=== PATIENT | female | born 1965 | race Caucasian/White ===

== ENCOUNTER 2020-12-17 15:23 | Emergency (ER) | payer BC ==
[2020-12-17 15:31] VITALS: BP 150/84
[2020-12-17] MEDS ORDERED: metroNIDAZOLE 250 MG TABLET PO STA (15:40)
[2020-12-17] MEDS ORDERED: CIPROFLOXACIN 250 MG TABLET PO STA (15:40)
--- NOTE | 2020-12-17 15:43 | ED Physician Documentation ---
PD HPI ABD PAIN - Stated complaint Stated Complaint: L SIDE PX - Chief complaint Chief Complaint: Abd Pain - History obtained from History obtained from: Patient - Additional information Additional information: 55-year-[place] has a history of recurrent diverticulitis, once with a small abscess that was managed with IV antibiotics. She has had left lower quadrant pain with mild nausea for the last 5 days. No fevers. No changes in bowel movements. Has not made any dietary adjustment yet. Request abx Review of Systems Constitutional: denies: Fever, Chills Cardiac: denies: Chest pain / pressure, Palpitations Respiratory: denies: Dyspnea, Cough GI: reports: Abdominal Pain, Nausea PD PAST MEDICAL HISTORY - Present Medications Home Medications: Ambulatory Orders Medication Instructions Recorded Confirmed Ciprofloxacin HCl [Cipro] 500 mg PO BID #14 tablet 12/17/20 Ondansetron Odt [Zofran] 4 mg TL Q6H PRN #10 tablet 12/17/20 metroNIDAZOLE [Flagyl] 500 mg PO TID #21 tablet 12/17/20 - Allergies Allergies/Adverse Reactions: Allergies Allergy/AdvReac Type Severity Reaction Status Date / Time meperidine [From Demerol] Allergy Emesis Verified 12/17/20 15:28 Latex, Natural Rubber AdvReac Hives Verified 12/17/20 15:28 PD ED PE NORMAL - Vitals Vital signs reviewed: Yes - General General: Alert and oriented X 3, No acute distress - Neck Neck: Supple, no meningeal sign, No bony TTP - Cardiac Cardiac: RRR, No murmur - Respiratory Respiratory: No respiratory distress, Clear bilaterally - Abdomen Abdomen: Normal bowel sounds, Soft, Non tender - Back Back: No CVA TTP, No spinal TTP - Derm Derm: Normal color, Warm and dry - Extremities Extremities: No edema, No calf tenderness / cord - Neuro Neuro: Alert and oriented X 3, Normal speech Results - Vitals Vitals: Vital Signs - 24 hr 12/17/20 15:28 Temperature 36.5 C Heart Rate 114 H Respiratory 16 Rate Blood Pressure 150/84 H O2 Saturation 98 Oxygen O2 Source Room air PD MEDICAL DECISION MAKING - ED course ED course: 55-year-old woman with history of recurrent diverticulitis presents with apparent flare of same, requests prescription for antibiotics. We discussed advanced imaging and options for antibiotics and she opted for Cipro and Flagyl now. Departure - Departure Disposition: 01 Home, Self Care Clinical Impression: Diverticulitis of gastrointestinal tract Condition: Good Record reviewed to determine appropriate education?: Yes Instructions: ED Diverticulitis Prescriptions: Ciprofloxacin HCl [Cipro] 500 mg PO BID #14 tablet metroNIDAZOLE [Flagyl] 500 mg PO TID #21 tablet Ondansetron Odt [Zofran] 4 mg TL Q6H PRN #10 tablet PRN Reason: Nausea / Vomiting Comments: Clear liquid diet for the next 24 hours, then go to a low residue liquid diet for 24 hours and then slowly advance. Return if worsening or if not better for the next few days. Or if you run a fever. Discharge Date/Time: 12/17/20 15:55
== END 2020-12-17 15:55 | disposition home or self-care (01) ==
LOC: ED 15:23
DX: K57.92 Diverticulitis of intestine, part unspecified, without perforation or abscess without bleeding (principal)
CPT/HCPCS: 99283; 99284; A9270

== ENCOUNTER 2020-12-22 19:17 | Emergency (ER) | payer BC ==
[2020-12-22 20:11] LABS: BILIRUBIN,URINE NEGATIVE (NEGATIVE); GLUCOSE, URINE (UA) NEGATIVE (NEGATIVE); KETONES,URINE (UA) NEGATIVE (NEGATIVE); LEUKOCYTE ESTERASE, URINE TRACE (NEGATIVE); NITRITE,URINE NEGATIVE (NEGATIVE); OCCULT BLOOD,URINE TRACE-LYSE (NEGATIVE); PH,URINE 5.5 PH (5.0-7.5); PROTEIN,URINE NEGATIVE (NEGATIVE); UROBILINOGEN,URINE 0.2 (NORMAL) E.U./dL (NORMAL)
[2020-12-22 20:15] LABS: CLARITY,URINE HAZY (CLEAR)
[2020-12-22 20:25] LABS: BASOPHILS # (AUTO) 0.1 10^3/uL (0.0-0.1); EOSINOPHILS # (AUTO) 0.1 10^3/uL (0.0-0.7); EOSINOPHILS % (AUTO) 2.5 %; HCT - HEMATOCRIT 41.9 % (37.0-47.0); HGB - HEMOGLOBIN 14.3 g/dL (12.0-16.0); LYMPHOCYTES # (AUTO) 2.4 10^3/uL (1.5-3.5); LYMPHOCYTES % (AUTO) 44.9 %; MEAN CORPUSCULAR HEMOGLOBIN 31.9 pg (27.0-31.0); MEAN CORPUSCULAR HGB CONC 34.1 g/dL (32.0-36.0); MEAN CORPUSCULAR VOLUME 93.5 fL (81.0-99.0); MEAN PLATELET VOLUME 9.9 fL (7.9-10.8); MONOCYTES # (AUTO) 0.4 10^3/uL (0.0-1.0); MONOCYTES % (AUTO) 7.6 %; NEUTROPHILS # (AUTO) 2.3 10^3/uL (1.5-6.6); NEUTROPHILS % (AUTO) 43.8 %; PLT - PLATELET COUNT 191 10^3/uL (130-450); RED BLOOD COUNT 4.48 10^6/uL (4.20-5.40); RED CELL DISTRIBUTION WIDTH 13.1 % (12.0-15.0); WHITE BLOOD COUNT 5.3 x10^3/uL (4.8-10.8)
[2020-12-22 20:36] LABS: BACTERIA,URINE Rare /HPF (None Seen); RBC,URINE 0-5 /HPF (0-5); SQUAMOUS EPITHELIAL CELL,UR FEW Squamous (<= Few); WBC,URINE 0-3 /HPF (0-5)
[2020-12-22 20:38] LABS: ALBUMIN 4.4 g/dL (3.2-5.5); ALBUMIN/GLOBULIN RATIO 1.8 (1.0-2.2); BILIRUBIN,TOTAL 0.6 mg/dL (0.2-1.0); CREATININE 0.7 mg/dL (0.4-1.0); POTASSIUM 3.6 mmol/L (3.5-5.0); TOTAL PROTEIN 6.9 g/dL (6.7-8.2)
[2020-12-22] MEDS ORDERED: IOPAMIDOL-300 100 ML VIAL ONE (21:01)
--- NOTE | 2020-12-22 21:02 | ED Physician Documentation ---
PD HPI ABD PAIN - Stated complaint Stated Complaint: LT SIDE FLANK PX - Chief complaint Chief Complaint: Abd Pain - History obtained from History obtained from: Patient - Additional information Additional information: 55-year-old woman with a history of diverticulitis, she is visiting here and was seen by me on Thursday, 5 days ago for apparent clinical flare of same and was put on Cipro and Flagyl which she has been taking. She has not really gotten any better. That said she has not gotten worse either. Bowel movements have been scant but she has been eating a light diet. They were little mucousy to. She denies vomiting but she has had nausea but not bad enough to take the Zofran that was prescribed. Review of Systems Ten Systems: 10 systems reviewed and negative Constitutional: denies: Fever, Chills Cardiac: denies: Chest pain / pressure, Palpitations Respiratory: denies: Dyspnea, Cough PD PAST MEDICAL HISTORY - Past Medical History Past Medical History: Yes GI: Diverticulitis - Present Medications Home Medications: Ambulatory Orders Medication Instructions Recorded Confirmed Ciprofloxacin HCl [Cipro] 500 mg PO BID #14 tablet 12/17/20 12/22/20 Ondansetron Odt [Zofran] 4 mg TL Q6H PRN #10 tablet 12/17/20 12/22/20 metroNIDAZOLE [Flagyl] 500 mg PO TID #21 tablet 12/17/20 12/22/20 - Allergies Allergies/Adverse Reactions: Allergies Allergy/AdvReac Type Severity Reaction Status Date / Time meperidine [From Demerol] Allergy Emesis Verified 12/22/20 19:41 Latex, Natural Rubber AdvReac Hives Verified 12/22/20 19:41 - Social History Does the pt smoke?: No Smoking Status: Never smoker Does the pt drink ETOH?: No Does the pt have substance abuse?: No - Immunizations Immunizations are current?: Yes - POLST Patient has POLST: No PD ED PE NORMAL - Vitals Vital signs reviewed: Yes - General General: Alert and oriented X 3, No acute distress - HEENT HEENT: PERRL, EOMI - Neck Neck: Supple, no meningeal sign, No bony TTP - Cardiac Cardiac: RRR, No murmur - Respiratory Respiratory: No respiratory distress, Clear bilaterally - Abdomen Abdomen: Normal bowel sounds, Soft, Other (Mild left lower quadrant tenderness without surgical signs.) - Back Back: No CVA TTP, No spinal TTP - Derm Derm: Normal color, Warm and dry - Extremities Extremities: No edema, No calf tenderness / cord - Neuro Neuro: Alert and oriented X 3, Normal speech Results - Vitals Vitals: Vital Signs - 24 hr 12/22/20 12/22/20 12/22/20 19:37 19:38 22:03 Temperature 37.0 C 37.0 C 37.1 C Heart Rate 87 87 90 Respiratory 16 16 16 Rate Blood Pressure 136/70 H 136/70 H 129/75 O2 Saturation 99 99 100 Oxygen O2 Source Room air - Labs Labs: Laboratory Tests 12/22/20 12/22/20 12/22/20 19:54 20:16 20:16 WBC 5.3 RBC 4.48 Hgb 14.3 Hct 41.9 MCV 93.5 MCH 31.9 H MCHC 34.1 RDW 13.1 Plt Count 191 MPV 9.9 Neut # (Auto) 2.3 Lymph # (Auto) 2.4 [place] # (Auto) 0.4 Eos # (Auto) 0.1 Baso # (Auto) 0.1 Absolute Nucleated RBC 0.00 Nucleated RBC % 0.0 Sodium 140 Potassium 3.6 Chloride 105 Carbon Dioxide 26 Anion Gap 9.0 BUN 12 Creatinine 0.7 Estimated GFR (MDRD) 86 L Glucose 108 H Calcium 9.0 Total Bilirubin 0.6 AST 36 ALT 30 Alkaline Phosphatase 74 Total Protein 6.9 Albumin 4.4 Globulin 2.5 Albumin/Globulin Ratio 1.8 Lipase 32 Urine Color LT. YELLOW Urine Clarity HAZY Urine pH 5.5 Ur Specific Switchback <=1.005 Urine Protein NEGATIVE Urine Glucose (UA) NEGATIVE Urine Ketones NEGATIVE Urine Occult Blood TRACE-LYSE Urine Nitrite NEGATIVE Urine Bilirubin NEGATIVE Urine Urobilinogen 0.2 (NORMAL) Ur Leukocyte Esterase TRACE H Urine RBC 0-5 Urine WBC 0-3 Ur Squamous Epith Cells FEW Squamous Urine Bacteria Rare Ur Microscopic Review INDICATED Urine Culture Comments INDICATED PD MEDICAL DECISION MAKING - ED course ED course: 55-year-old woman with history of Diverticulitis presents after 5 days of antibiotics without improvement. That said her symptoms have changed somewhat. As such CT imaging was obtained and negative for active diverticulitis. I discussed with her I think she could safely stop antibiotics at this juncture and advance her diet. Departure - Departure Disposition: 01 Home, Self Care Clinical Impression: Diverticulitis of gastrointestinal tract Condition: Good Record reviewed to determine appropriate education?: Yes Comments: Given the lack of findings of active diverticulitis, reasonable to stop the antibiotics at this juncture. Go back to a normal diet over the next day or 2. Return if worsening. Discharge Date/Time: 12/22/20 22:05
[2020-12-22] MEDS ORDERED: IOPAMIDOL-300 100 ML VIAL IVP ONE (21:26)
--- NOTE | 2020-12-22 21:40 | CT Report ---
PROCEDURE: Abdomen/Pelvis W INDICATIONS: IV only LLQ pain CONTRAST: IV CONTRAST: Isovue 300 ml: 100 PO CONTRAST: *NO PO CONTRAST TECHNIQUE: After the administration of nonionic IV contrast, 5 mm thick sections acquired from the diaphragms to the symphysis. 5 mm thick coronal and sagittal reformats were acquired. For radiation dose reducti on, the following was used: automated exposure control, adjustment of mA and/or kV according to martha ent size. COMPARISON: None. FINDINGS: Image quality: Excellent. ABDOMEN: Lung bases: Lung bases are clear. Heart size is normal. Solid organs: Liver and spleen are normal in size and enhancement. Gallbladder is relatively collap sed at the time of this study. Biliary system is non dilated. Pancreas enhances normally. No adr enal nodules. Kidneys demonstrate normal size and enhancement, without hydronephrosis. Peritoneum and bowel: In this patient with this given history, scrutiny is given to the left lower q uadrant and sigmoid colon. Distal colonic diverticulosis is seen, without findings of active divertic ulitis. No bowel wall thickening can be seen elsewhere. No dilated loops of small bowel are seen. No free air or significant free fluid can be seen. Nodes and vessels: No retroperitoneal or mesenteric adenopathy by size criteria. Aorta and inferior vena cava are normal in size. Miscellaneous: No ventral hernias. PELVIS: Genitourinary: Bladder wall thickness is normal. A small amount of apparent calcification can be se en along the endometrial stripe within the uterine fundus, as on series 6 image 35 and on series 3 im age 59. No adnexal masses are seen. Miscellaneous: No inguinal hernias or adenopathy. Bones: No suspicious bony lesions. No vertebral body compression fractures. Mild levoconvex scoliot ic curvature is seen. This patient has transitional anatomy. For the purposes of this examination, t he level with tiny vestigial ribs is considered to be L1. By this summary scheme, the S1 level is par tially lumbarized. Focal L5-S1 degenerative change is seen. IMPRESSION: Distal colonic diverticulosis, without findings of active diverticulitis. Incidental note is made of: Transitional lumbar anatomy Focal L5-S1 degenerative change An apparent small focus of calcification seen along the endometrial stripe within the uterine fundus. Reviewed by: González Tolentino MD on 12/22/2020 8:39 PM AKDT Approved by: González Tolentino MD on 12/22/2020 8:39 PM ILE[facility] Station ID: [id number]
[2020-12-22 22:05] VITALS: BP 129/75
== END 2020-12-22 22:05 | disposition home or self-care (01) ==
LOC: ED 19:17
DX: K57.30 Diverticulosis of large intestine without perforation or abscess without bleeding (principal)
CPT/HCPCS: 36415; 74177; 80053; 81001; 83690; 85025; 87086; 99284; Q9967; 81003